=== PATIENT | female | born 1985 | race Caucasian/White ===

== ENCOUNTER 2016-02-29 06:47 | Day surgery (SDC) | payer OTHER ==
[~2016-02-29] VITALS: Ht 165.1 cm; Wt 91.4 kg
[2016-02-29] VITALS (17 sets, daily range): BP systolic 91–110; BP diastolic 52–68; PULSE 62–84; RESP 15–19; Ht 165.1 cm; Wt 91.4 kg
[2016-02-29] MEDS ORDERED: PRAV20TA63 PO (07:39)
[2016-02-29] MEDS ORDERED: METO-448 PO (07:40)
[2016-02-29] MEDS ORDERED: NIT4 SL (07:42)
[2016-02-29] MEDS ORDERED: OMEG1CAP31 PO (07:43)
[2016-02-29 08:12] LABS: BASOPHIL # 0.1 10^3/ul (0.0-0.1); BASOPHILS % 0.6 % (0.0-2.0); EOSINOPHILS # 0.1 10^3/ul (0.0-0.5); EOSINOPHILS % 1.3 % (0.0-7.0); HEMATOCRIT 36.9 % (37.0-47.0); HEMOGLOBIN 12.3 g/dl (12.0-16.0); LYMPHOCYTES # 2.5 10^3/ul (0.8-2.9); LYMPHOCYTES % 25.9 % (15.0-51.0); MEAN CORPUSCULAR HEMOGLOBIN 26.7 pg (29.0-33.0); MEAN CORPUSCULAR HGB CONC 33.4 g/dl (32.0-37.0); MEAN CORPUSCULAR VOLUME 80.1 fl (82.0-101.0); MEAN PLATELET VOLUME 8.1 fl (7.4-10.4); MONOCYTE # 0.7 10^3/ul (0.3-0.9); MONOCYTES % 6.9 % (0.0-11.0); NEUTROPHIL # 6.2 10^3/ul (1.6-7.5); NEUTROPHILS % 65.3 % (39.0-77.0); PLATELET COUNT 371 10^3/UL (140-440); RED BLOOD COUNT 4.61 10^6/ul (4.20-5.40); RED CELL DISTRIBUTION WIDTH 14.4 % (11.5-14.5); UNCORRECTED WBC 9.5 10^3/ul (4.8-10.8); WHITE BLOOD COUNT 9.5 10^3/ul (4.8-10.8)
[2016-02-29 08:15] LABS: INR 0.94; PROTIME 12.6 Sec (12.2-14.2)
[2016-02-29] MEDS ORDERED: IODIXANOL LOCM 100 ML BTL ONE (08:15)
[2016-02-29] MEDS ORDERED: VERAPAMIL 5 MG INJ ONE (08:15)
[2016-02-29] MEDS ORDERED: MIDAZOLAM 1 MG/ML 2 ML INJ ONE (08:15)
[2016-02-29] MEDS ORDERED: NITROGLYCERIN (IC) 100 MCG/ML INJ ONE (08:15)
[2016-02-29] MEDS ORDERED: LIDOCAINE 1% (MDV) 20 ML INJ ONE (08:15)
[2016-02-29] MEDS ORDERED: HEPARIN 1000 UNITS/ML 10 ML INJ ONE (08:15)
[2016-02-29] MEDS ORDERED: FENTAnyl 50 MCG/ML VIAL ONE (08:15)
[2016-02-29 08:17] LABS: CONDITION 1; LH ANALYZER COMMENTS 1
[2016-02-29 08:19] LABS: CHOL/HDL RATIO 4.6 RATIO
[2016-02-29 08:22] LABS: PARTIAL THROMBOPLASTIN TIME 35.7 Sec (25.0-35.0)
--- NOTE | 2016-02-29 08:23 | RADRPT ---
PROCEDURE: XR Chest. CLINICAL INDICATION: Chest pain TECHNIQUE: Single frontal view of the chest. COMPARISON: No priorchest radiograph. FINDINGS: The lungs are clear. No pleural effusion or pneumothorax. The cardiomediastinal silhouette is unremarkable. No acute osseous abnormalities. IMPRESSION: No acute abnormalities. RPTAT: AADD .Aaron Bah MD, MD Date Time Electronically viewed and signed by .Aaron Bah MD, MD on 02/29/2016 08:23 .B/
[2016-02-29 08:33] LABS: CALCIUM 9.3 mg/dl (8.4-10.2); CREATININE 0.6 mg/dl (0.44-1.00)
[2016-02-29] MEDS ORDERED: SOD CHLORIDE 0.9% 500 ML ONE (09:43)
[2016-02-29] MEDS ORDERED: SOD CHLORIDE 0.9% 1,000 ML IV SCH (09:46)
[2016-02-29] MEDS ORDERED: morphine 2 MG INJ IV PRN (10:00)
[2016-02-29] MEDS ORDERED: ACETAMINOPHEN 325 MG TAB PO PRN (10:00)
[2016-02-29] MEDS ORDERED: ONDANSETRON 4 MG INJ IV PRN (10:00)
[2016-02-29] MEDS ORDERED: AL HYDROX/MG HYDROX/SIMETH 30 ML CUP PO PRN (10:00)
[2016-02-29] MEDS ORDERED: NITROGLYCERIN (SL) 0.4 MG TAB SL PRN (14:00)
--- NOTE | 2016-02-29 14:02 | RADRPT ---
Vent Rate: 69 bpm RR Interval: 0 msec MT Interval: 172 msec QRS Duration: 92 msec QT Interval: 382 msec QTC Interval: 409 msec P-R-T [place]: 59 - 60 - 34 degrees Normal sinus rhythm Normal ECG Electronically Signed By: Oliver Kitchen [id number]
--- NOTE | 2016-02-29 14:28 | CARRPT ---
DATE OF PROCEDURE: 02/29/2016 TYPE OF PROCEDURE: 1. Left heart catheterization. 2. Coronary angiography. 3. Left ventriculogram. ATTENDING PHYSICIAN: Minor Fatima MD REFERRING PHYSICIAN: Dr. Jacobo Parnell. TYPE OF ANESTHESIA: Conscious and local. INDICATION: Chest pain with positive stress test findings for ischemia refractory to medical therap y. BRIEF HISTORY: Ms. Balderas is a 30-year-old female with history of hypertension who initially present ed with complaints of substernal chest pain. The patient additionally had a positive family history of a mother with an OK in her 30s. The patient was placed on medical therapy, continued to h ave chest pain and underwent a cardiac stress test revealing positive ischemia. She has now been ref erred for left heart catheterization to assess for the possibility of significant obstructive martin ry artery disease lending to her symptoms of chest pain and subsequent positive stress test findings . DESCRIPTION OF PROCEDURE: After informed consent was obtained, the patient was brought to the [facility] cardiac catheterization lab where her right radial area was prepped and drap ed in usual sterile fashion. Lidocaine 2% was infiltrated into right radial area in order to achiev e adequate local anesthesia. Using modified Seldinger technique, the radial artery was cannulated a nd a 6-Fijian arterial sheath was placed. A 6-Fijian JL3 catheter was used to cannulate the left ma in coronary ostium. With contrast injection, multiple views of the left coronary arterial ostium we re obtained. JL3 was removed over a guidewire and a JR4 was used to cannulate the right coronary ar terial ostium. With contrast injection, multiple views of the right coronary arterial ostium obtain ed. JR4 was removed over a guidewire and a 6-Fijian pigtail was passed down the ascending aorta int o the LV and left ventricular end-diastolic pressure was measured power injector was used to perform the left ventriculogram, 20 mL of contrast. The pigtail catheter was then pulled back across the a ortic valve to assess for significant gradient, which there was not and removed. Subsequently, at t his time, the procedure was completed. The patient's sheath was removed. TR band was applied. The re were no noted complications. It should be noted that the patient had some spasm of her vessel du ring the procedure requiring increasing dose of nitroglycerin given intra-arterial. FINDINGS: Coronary angiography: Left main short 3.5 mm, no significant stenoses. Circumflex proxi sandra is a 2.5 mm vessel and has no significant focal stenosis in its entirety. It is a small calib er vessel, has 2 mid branching obtuse marginals with no significant focal stenosis, each sub 2 mm ve ssels. LAD proximally is a 3 mm vessel and has approximately a 20% ostial stenosis. The remainder of LAD is free of significant focal stenoses. It does become a tortuous vessel and smaller as it re aches towards the apex, and eccentric does reach the apex. There is a mid branching diagonal sub 2 mm vessel with no significant focal stenoses. There exists a ramus branch sub 2 mm with no signifi cant focal stenoses. The right coronary artery proximally is a 3.5 mm vessel and is free of any sig nificant focal stenosis throughout its entirety. A dominant vessel, gives off a 2 mm PDA and a 2.5 mm posterolateral branch, each with no significant focal stenoses. Left ventriculogram revealed a left ventricular ejection fraction of 60% to 65%. Left ventricular e nd diastolic pressure of 15 pre-LV gram, 19 post-LV gram, 1+ mitral regurgitation, no significant ao rtic stenosis or aortic gradient. TOTAL FLUOROSCOPY TIME: 5.3 minutes. TOTAL CONTRAST: 75 mL. IMPRESSION: 1. Essentially normal coronary arteries with very mild nonobstructive coronary artery disease. 2. Preserved left ventricular systolic function. 3. Normal left heart filling pressures. 4. No significant aortic stenosis by gradient. 5. 1+ mitral regurgitation. RECOMMENDATIONS: In light of procedure and findings at this time would: 1. Maximize medical management. 2. Aggressive risk factor reduction. 3. The patient to be readmitted to same day surgery center for post-catheterization observation and continued management of symptoms with probable discharge later this afternoon. Dictated By: MINOR PISANO/WALLY Conf#: [id number] DID#: [id number]
== END 2016-02-29 15:30 | disposition home or self-care (01) ==
LOC: SDS 06:47
PROVIDERS: ATTEND Internal Medicine
DX: I25.10 Atherosclerotic heart disease of native coronary artery without angina pectoris (principal); I10 Essential (primary) hypertension; R94.39 Abnormal result of other cardiovascular function study
CPT/HCPCS: 71010; 80048; 80061; 84703; 85025; 85610; 85730; 93005; 93458; C1769; C1887; J1644; J2250; J3010; J7040; Q9967; Z7610